=== PATIENT | male | born 1995 | race Caucasian/White ===

== ENCOUNTER 2019-05-12 08:53 | Emergency (ER) | payer OTHER ==
[~2019-05-12] VITALS: Ht 188 cm; Wt 77.3 kg
[2019-05-12] MEDS ORDERED: DERMABOND TOPICAL SKIN ADHESIVE TOP ONE (10:30)
[2019-05-12 10:49] VITALS: BP 140/89
== END 2019-05-12 11:01 | disposition home or self-care (01) ==
LOC: M ED 08:53
DX: S61.211A Laceration without foreign body of left index finger without damage to nail, initial encounter (principal); W26.8XXA Contact with other sharp object(s), not elsewhere classified, initial encounter; Y92.098 Other place in other non-institutional residence as the place of occurrence of the external cause

== ENCOUNTER 2019-12-19 15:00 | Emergency (ER) | payer OTHER, SELFPAY ==
[~2019-12-19] VITALS: Ht 188 cm; Wt 78.7 kg
[2019-12-19] MEDS ORDERED: EQLTAB77 PO (15:07)
[2019-12-19 15:46] LABS: INFLUENZA A AMPLIFICATION NEGATIVE (NEGATIVE); INFLUENZA B AMPLIFICATION POSITIVE (NEGATIVE)
[2019-12-19 16:55] VITALS: BP 130/81
== END 2019-12-19 16:57 | disposition home or self-care (01) ==
LOC: M ED 15:00
DX: J10.89 Influenza due to other identified influenza virus with other manifestations (principal); J06.9 Acute upper respiratory infection, unspecified; F17.200 Nicotine dependence, unspecified, uncomplicated; Z79.899 Other long term (current) drug therapy

== ENCOUNTER → 2020-11-13 | Outpatient (REF) | payer OTHER ==
[~2020-11-13] MED LIST: EQLTAB77 PO
== END ==
LOC: M LAB REF 15:55
PROVIDERS: ATTEND Physician Assistant
DX: J02.9 Acute pharyngitis, unspecified (principal)